=== PATIENT | male | born 1960 | race Caucasian/White ===

== ENCOUNTER 2017-11-22 11:59 | Emergency (ER) | payer OTHER, BC ==
[~2017-11-22] VITALS: Ht 167.6 cm; Wt 96.0 kg
[~2017-11-22 11:59] MED LIST: BACT PO
[2017-11-22 12:01] VITALS: BP 141/84; PULSE 108; RESP 14; TEMP 99.3; O2SAT 96
[2017-11-22] MEDS ORDERED: OXYC1TAB63 PO (13:52)
[2017-11-22] MEDS ORDERED: NAPR500T2 PO (14:41)
--- NOTE | 2017-11-22 14:44 | PD ---
HPI Chief Complaint: Pain: Acute or Chronic Time Seen by Provider: 14:19 Travel History International Travel<30 days: No Contact w/Intl Traveler<30days: No History of Present Illness HPI 57-year-old male presents to the emergency department for evaluation of right knee pain. Patient was seen at a hospital in [place] 2 days ago after head injury at work where he was climbing over a fence and the fence fell. He had x- rays completed which showed no acute fracture. He was diagnosed with a ligamentous injury. He has a knee immobilizer on right now and is using crutches. She was discharged a prescription for Percocet. He states that he is still having severe pain despite the Percocet. Pain is in the right medial knee. Moderate severity. Exacerbating factor is movement. Alleviating factor is prescribed medication. PFSH Past Medical History Blood Disorders: No Heart Rhythm Problems: No Cancer: No Cardiovascular Problems: No High Cholesterol: No Chest Pain: Yes Congestive Heart Failure: No Diminished Hearing: No Endocrine: No Genitourinary: No Hypertension: No Immune Disorder: No Musculoskeletal: No Neurologic: No Psychiatric: No Reproductive: No Respiratory: No Tetanus Vaccination: < 5 Years Influenza Vaccination: No Past Surgical History Body Medical Devices: ankles have pins Social History Alcohol Use: Yes (2 BEERS 2X MONTH) Tobacco Use: No Substance Use: No Allergies-Medications (Allergen,Severity, Reaction): Coded Allergies: No Known Allergies (Unverified Adverse Reaction, Unknown, 11/22/17) Reported Meds & Prescriptions Reported Meds & Active Scripts Active Reported Oxycodone-Acetaminophen 5-325 mg Tab 1 Tab PO Q6H PRN Review of Systems Except as stated in HPI: all other systems reviewed are Neg Physical Exam Narrative GENERAL: Well-nourished, well-developed. Afebrile. SKIN: Focused skin assessment warm/dry. HEAD: Normocephalic. Atraumatic. EYES: No scleral icterus. No injection or drainage. NECK: Supple, trachea midline. No JVD or lymphadenopathy. CARDIOVASCULAR: Regular rate and rhythm without murmurs, gallops, or rubs. RESPIRATORY: Breath sounds equal bilaterally. No accessory muscle use. Lungs sounds are clear to auscultation. GASTROINTESTINAL: Abdomen soft, non-tender, nondistended. MUSCULOSKELETAL: No cyanosis, or edema. Patient has tenderness over left medial knee, left proximal knee. Left pedal pulse is 2+. BACK: Nontender without obvious deformity. No CVA tenderness. Data Data Last Documented VS Vital Signs Date Time Temp Pulse Resp B/P (MAP) Pulse Ox O2 Delivery O2 Flow Rate FiO2 11/22/17 12:01 99.3 108 14 141/84 (103) 96 Orders Orders Ketorolac Inj (Toradol Inj) (11/22/17 14:45) Orphenadrine Inj (Norflex Inj) (11/22/17 14:45) MDM Medical Decision Making Medical Screen Exam Complete: Yes Emergency Medical Condition: Yes Medical Record Reviewed: Yes Differential Diagnosis Ligamentous injury versus acute pain versus fracture Narrative Course 57year-old male presents to the emergency department for evaluation of pain to his right knee. Patient was diagnosed with ligamentous injury 2 days ago at another hospital. According to patient's family, x-ray was negative for acute fracture. He is wearing any immobilizer and uses crutches at home. He is already taking Percocet for the pain. Patient is given Toradol 60 mg IM and Norflex 60 mg IM here. He'll be discharged with a prescription for naproxen to take as well as the Percocet he was prescribed. He is to follow with orthopedist tomorrow. He verbalizes agreement. The patient was discharged in stable condition with instructions, including return instructions and follow up instructions. Diagnosis Primary Impression: Right knee injury Qualified Codes: S89.91XA - Unspecified injury of right lower leg, initial encounter Referrals: Orthopedist 1 day Patient Instructions: General Instructions, Knee Pain (ED) Additional Instructions: Continue Percocet as directed as needed for pain. Take Naproxen as well as directed as needed for pain. Ice for 20 mins on, 20 mins off. Wear knee immobilizer. Use crutches. Follow up with orthopedist. Return to the emergency department for any acute, worsening of symptoms. Med/Other Pt SpecificInfo: Prescription(s) given Scripts Naproxen (Naproxen) 500 Mg Tab 500 MG PO BID Y for PAIN SCALE 1 TO 10, #60 TAB 0 Refills Prov: MylesVannessa SERNA 11/22/17 Disposition: 01 DISCHARGE HOME Condition: Stable Vannessa Bueno Nov 22, 2017 14:44
[2017-11-22] MEDS ORDERED: ORPHENADRINE INJ 60 MG/2 ML AMP IM ONE (14:45)
[2017-11-22] MEDS ORDERED: KETOROLAC TROMETHAMINE 60 MG/2 ML (IM) VIAL IM ONE (14:45)
== END 2017-11-22 15:01 | disposition home or self-care (01) ==
LOC: NEPD 11:59
DX: S89.91XA Unspecified injury of right lower leg, initial encounter (principal); W17.89XA Other fall from one level to another, initial encounter; Y93.39 Activity, other involving climbing, rappelling and jumping off
CPT/HCPCS: 96372; 99284; J1885; J2360